=== PATIENT | female | born 1980 | race Caucasian/White ===

== ENCOUNTER 2023-04-05 16:26 | Emergency (ER) | payer OTHER ==
[2023-04-05] MEDS ORDERED: PROVENTIL 2.5 MG/3 ML NEB IH ONE ×2 (16:31→16:34)
--- NOTE | 2023-04-05 16:33 | ERPHSYRPT ---
- History of Present Illness Time Seen by Provider: 04/05/23 16:33 Source: patient Exam Limitations: no limitations Physician History: This is a 42-year-old white female who was cleaning at her home and was exposed to bleach and this precipitated some acute shortness of breath. Patient has a distant, past history of asthma. She also began having some mild central sub sternal nonradiating chest pain that is mild associated with the exposure to the bleach. It is now resolved. Patient presents to the emergency department with shortness of breath. She has no abdominal pain. She has no fever. She has no cough. Timing/Duration: today Activities at Onset: none Severity of Dyspnea-Max: mild Severity of Dyspnea-Current: mild (To moderate) Possible Cause: irritant gases exposure (Exposure to strong bleach prior to arrival) Associated Symptoms: chest pain/discomfort (Now resolved) Allergies/Adverse Reactions: No Known Drug Allergies Allergy (Verified 04/05/23 16:37) Home Medications: Escitalopram Oxalate [Lexapro] 20 mg PO DAILY 04/05/23 [History] Travel Risk - International Travel Have you traveled outside of the country in past 3 weeks: No - Coronavirus Screening Are you exhibiting any of the following symptoms?: No Close contact with a COVID-19 positive Pt in past 14-21 Days: No - Review of Systems Constitutional: No Symptoms Eyes: No Symptoms Ears, Nose, & Throat: No Symptoms Respiratory: Dyspnea Cardiac: Chest Pain (Mild central substernal ache that is now resolved) Abdominal/Gastrointestinal: No Symptoms Genitourinary Symptoms: No Symptoms Musculoskeletal: No Symptoms Skin: No Symptoms Neurological: No Symptoms Psychological: No Symptoms Endocrine: No Symptoms Hematologic/Lymphatic: No Symptoms Immunological/Allergic: No Symptoms All Other Systems: Reviewed and Negative - Past Medical History Pertinent Past Medical History: Yes - Past Surgical History Past Surgical History: Yes - Nursing Vital Signs Nursing Vital Signs: Initial Vital Signs Temperature 97.4 F 04/05/23 16:28 Pulse Rate 90 04/05/23 16:28 Respiratory Rate 28 H 04/05/23 16:28 Blood Pressure 137/79 04/05/23 16:28 O2 Sat by Pulse Oximetry 96 04/05/23 16:28 Pain Scale Pain Intensity 5 - Physical Exam General Appearance: no apparent distress, alert, anxiety Eye Exam: PERRL/EOMI, eyes nml inspection Ears, Nose, Throat Exam: hearing grossly normal, normal ENT inspection, normal pharynx Neck Exam: normal inspection, non-tender, supple, full range of motion Respiratory Exam: normal breath sounds, lungs clear, airway intact, No chest tenderness, No respiratory distress Cardiovascular/Chest Exam: normal heart sounds, regular rate/rhythm Abdominal/Gastrointestinal Exam: soft, normal bowel sounds, No tenderness Rectal Exam: not done Extremity Exam: non-tender, normal range of motion, normal inspection Neurologic Exam: alert, oriented x 3, cooperative, client solutions director II-XII nml as tested, normal mood/affect, nml cerebellar function, nml station & gait (Walking with a cane because he just had a spinal fusion surgery in her lumbar region) Skin Exam: normal color, warm, dry Lymphatic Exam: No adenopathy SpO2 Interpretation: normal O2 Delivery: Room Air - Course Nursing assessment & vital signs reviewed: Yes EKG Interpreted by Me: RATE (79), Sinus Rhythm, NORMAL AXIS, NORMAL INTERVALS, NORMAL QRS, NORMAL ST-T, Other (No acute ischemic changes on today's twelve-lead EKG) Ordered Tests: Active Orders 24 hr Category Date Time Status CHEST 1 VIEW (PORTABLE) Stat Exams 04/05/23 16:41 Completed CBC W DIFF Stat Lab 04/05/23 16:56 Completed CMP Stat Lab 04/05/23 16:56 Completed TROPONIN Q4H Lab 04/05/23 16:56 Completed TROPONIN Q4H Lab 04/05/23 20:45 Ordered TROPONIN Q4H Lab 04/06/23 00:45 Ordered Respiratory Therapy Assessment DAILY RT 04/05/23 16:34 Active Medication Summary Discontinued Medications Generic Name Dose Route Start Last Admin Trade Name Ryanq PRN Reason Stop Dose Admin Albuterol Sulfate Confirm 04/05/23 16:31 Albuterol Sulfate 2.5 Mg/3 Ml Neb Administered 04/05/23 16:32 Dose 2.5 mg IH .STK-MED ONE Albuterol Sulfate 2.5 mg 04/05/23 16:34 04/05/23 16:48 Albuterol Sulfate 2.5 Mg/3 Ml Neb IH 04/05/23 16:35 2.5 mg STAT ONE Administration Methylprednisolone Sodium 0 mg 04/05/23 16:56 04/05/23 17:04 Succinate 40 mg/ Sterile Water IV 05/19/23 16:57 40 mg 1 ml STAT STA Administration Methylprednisolone Sodium Succinate Confirm 04/05/23 17:03 Methylprednisolone Sod Suc 40m 40 Mg/Ml Vial Administered 04/05/23 17:04 Dose 40 mg .ROUTE .[place] [employer] ONE Sterile Water Confirm 04/05/23 17:03 Water For Injection,Sterile 10 Ml Vial Administered 04/05/23 17:04 Dose 10 ml IJ .STK-MED ONE Lab/Rad Data: Laboratory Result Diagrams 04/05/23 16:56 04/05/23 16:56 Laboratory Results 04/05/23 04/05/23 04/05/23 Range/Units 16:56 16:56 16:56 WBC 7.6 (4.0-10.5) x10^3/uL RBC 4.36 (4.1-5.4) x10^6/uL Hgb 13.3 (12.0-16.0) g/dL Hct 40.6 (35-47) % MCV 93.1 (78-100) fL MCH 30.5 (26-32) pg MCHC 32.8 (32-36) g/dL RDW 12.8 (11.5-14.0) % Plt Count 319 (150-450) x10^3/uL MPV 9.5 (7.5-11.0) fL Gran % 56.7 (36.0-66.0) % Immature Gran % (Auto) 0.1 (0.00-0.4) % Nucleat RBC Rel Count 0.0 (0.00-0.1) % Eos # (Auto) 0.20 (0-0.5) x10^3/uL Immature Gran # (Auto) 0.01 (0.00-0.03) x10^3u/L Absolute Lymphs (auto) 2.42 (1.0-4.6) x10^3/uL Absolute Monos (auto) 0.61 (0.0-1.3) x10^3/uL Absolute Nucleated RBC 0.00 (0.00-0.01) x10^3u/L Lymphocytes % 31.8 (24.0-44.0) % Monocytes % 8.0 (0.0-12.0) % Eosinophils % 2.6 (0.00-5.0) % Basophils % 0.8 (0.0-0.4) % Absolute Granulocytes 4.32 (1.4-6.9) x10^3/uL Basophils # 0.06 (0-0.4) x10^3/uL Sodium 138 (137-145) mmol/L Potassium 3.7 (3.5-5.1) mmol/L Chloride 102 (98-107) mmol/L Carbon Dioxide 27 (22-30) mmol/L Anion Gap 12.1 (5-15) MEQ/L BUN 16 (7-17) mg/dL Creatinine 0.64 (0.52-1.04) mg/dL Estimated GFR > 60.0 ML/MIN Glucose 94 (74-106) mg/dL Calcium 9.0 (8.4-10.2) mg/dL Total Bilirubin 0.20 (0.2-1.3) mg/dL AST 50 H (14-36) U/L ALT 53 H (0-35) U/L Alkaline Phosphatase 80 (38-126) U/L Troponin I < 0.012 (0.000-0.034) ng/mL Serum Total Protein 7.4 (6.3-8.2) g/dL Albumin 4.3 (3.5-5.0) g/dL - Progress Progress: improved Air Movement: good Progress Note: 04/05/23 17:10 Chest x-ray was interpreted by me. There is no evidence of any acute cardiopulmonary process. 04/05/23 17:22 This patient's medical issue is 1 of low to moderate complexity. The level of complexity and the work-up performed is based on review of the patient's past medical history, review of the patient's medication list, review of the patient's drug allergy list, history of present illness and physical findings on examination. Work-up includes chest x-ray, twelve-lead EKG, troponin level and evaluation and treatment by respiratory therapy. Blood Culture(s) Obtained: No Antibiotics given: No Counseled pt/family regarding: lab results, diagnosis, need for follow-up, rad results Medical Desision Making - Independent Historian Additional History obtained from: Spouse - Diagnostic Testing Radiological Interpretation: Interpreted by me - Risk of complications The pt has a mod risk of morbidity or mortality based on: Need for prescription drug management - Departure Departure Disposition: Home Clinical Impression: Acute chemical pneumonitis Condition: Stable Critical Care Time: No Additional Instructions: Take your medication as prescribed. Avoid exposure to any type of smoke. Take your medication as prescribed. Follow-up with your primary care provider for further evaluation and management. Prescriptions: Prednisone 10 mg [Deltasone 10 mg] 10 mg PO TID #12 tablet Albuterol 8 gm Mdi Hfa [Ventolin Hfa MDI] 8 gm IH Q4H #1 unit
[2023-04-05] MEDS ORDERED: solu-MEDROL 40 MG, Sterile H2O 10 ml 1 ML IV STA ×2 (16:56)
[2023-04-05 16:58] LABS: Absolute Neutrophil Ct (ANC) 4.32 x10^3/uL (1.4-6.9); BASOPHIL % 0.8 % (0.0-0.4); Basophil (Absolute #) 0.06 x10^3/uL (0-0.4); Eosinophil % 2.6 % (0.00-5.0); Hematocrit 40.6 % (35-47); Hemoglobin 13.3 g/dL (12.0-16.0); IMMATURE GRAN # 0.01 x10^3u/L (0.00-0.03); IMMATURE GRAN % 0.1 % (0.00-0.4); Lymphocyte (Absolute #) 2.42 x10^3/uL (1.0-4.6); Lymphocytes % 31.8 % (24.0-44.0); Mean Cell Volume 93.1 fL (78-100); Mean Corpuscular Hemoglobin 30.5 pg (26-32); Mean Corpuscular Hgb Concent. 32.8 g/dL (32-36); Mean Platelet Volume 9.5 fL (7.5-11.0); Monocyte (Absolute #) 0.61 x10^3/uL (0.0-1.3); Neutrophil % 56.7 % (36.0-66.0); Platelet Count 319 x10^3/uL (150-450); Red Blood Count 4.36 x10^6/uL (4.1-5.4); Red Cell Distribution Width 12.8 % (11.5-14.0); White Blood Count 7.6 x10^3/uL (4.0-10.5)
[2023-04-05] MEDS ORDERED: solu-MEDROL ONE (17:03)
[2023-04-05] MEDS ORDERED: Sterile H2O 10 ml IJ ONE (17:03)
[2023-04-05 17:13] LABS: ALBUMIN 4.3 g/dL (3.5-5.0); ALKALINE PHOSPHATASE 80 U/L (38-126); ANION GAP 12.1 MEQ/L (5-15); BLOOD UREA NITROGEN 16 mg/dL (7-17); CHLORIDE 102 mmol/L (98-107); Carbon Dioxide 27 mmol/L (22-30); Creatinine 1 0.64 mg/dL (0.52-1.04); EST GLOMERULAR FILTRATION RATE > 60.0 ML/MIN; Glucose 94 mg/dL (74-106); Potassium 3.7 mmol/L (3.5-5.1); SGOT/AST 50 U/L (14-36); SGPT/ALT 53 U/L (0-35); SODIUM 138 mmol/L (137-145); Total Protein 7.4 g/dL (6.3-8.2)
--- NOTE | 2023-04-05 17:14 | XRAY ---
Indication: Exposure to bleach. Comparison: None Portable chest demonstrates normal heart, lungs, and bony thorax.
[2023-04-05 17:40] VITALS: PULSE 86; O2SAT 98
[2023-04-05 17:53] VITALS: BP 110/67
== END 2023-04-05 17:53 | disposition home or self-care (01) ==
LOC: ED 16:26
DX: T54.91XA Toxic effect of unspecified corrosive substance, accidental (unintentional), initial encounter (principal); J68.0 Bronchitis and pneumonitis due to chemicals, gases, fumes and vapors; R06.02 Shortness of breath; R07.9 Chest pain, unspecified; Z79.52 Long term (current) use of systemic steroids; Z79.899 Other long term (current) drug therapy
CPT/HCPCS: 36000; 36415; 71045; 80053; 84484; 85025; 94640; 96374; 99284; J2920; J7609; A9270-GY